=== PATIENT | male | born 1940 | race Caucasian/White ===

== ENCOUNTER → 2018-03-11 | Emergency (ER) | payer OTHER ==
[~2018-03-11] VITALS: Ht 175.3 cm; Wt 93.0 kg
[~2018-03-11] MED LIST: ADULT ASPIRIN81 MG; AMLODIPINE BESY10 MG PO; CATAFLAM50 MG PO; ENALAPRIL MALEA20 MG; GLUCOPHAGE XR500 MG; HUMALOG MIX 75/23 ML; HUMULIN 70100 UNIT/2; ORPH100T PO; PEPCID20 MG PO; TAMS0.4C
== END | disposition home or self-care (01) ==
LOC: ER 07:53
DX: N39.0 Urinary tract infection, site not specified (principal)

== ENCOUNTER 2018-03-13 17:54 | Emergency (ER) | payer OTHER ==
[~2018-03-13] VITALS: Ht 175.3 cm; Wt 95.3 kg
== END 2018-03-13 20:33 | disposition home or self-care (01) ==
LOC: ER 17:54
DX: R30.0 Dysuria (principal)